=== PATIENT | male | born 1970 | race Caucasian/White ===

== ENCOUNTER 2017-04-14 13:56 | Emergency (ER) | payer SELFPAY ==
[~2017-04-14] VITALS: Ht 185.4 cm; Wt 87.0 kg
[~2017-04-14 13:56] MED LIST: IBUP600T26 PO
[2017-04-14 13:59] VITALS: BP 152/77; PULSE 93; RESP 14; TEMP 98.5; O2SAT 100
--- NOTE | 2017-04-14 14:05 | PD ---
Physical Exam Date Seen by Provider: April 14, 2017 Time Seen by Provider: 13:58 Narrative 47 YOWM C/O R HEEL AND ANKLE PAIN. STEPPED ON A FB 2 MONTHS AGO TX AT [facility]. STILL WITH PAIN. TWISTING ANKLE DUE TO UNSTEADY GAIT. VVS WAITING FOR BED PLACEMENT MDM Medical Record Reviewed: Yes Supervised Visit with CUBA: Miguelangel Hoffman April 14, 2017 14:04
[2017-04-14] MEDS ORDERED: IBUP-232 PO (14:25)
--- NOTE | 2017-04-14 14:29 | PD ---
HPI Chief Complaint: Injury Time Seen by Provider: 14:29 Travel History International Travel<30 days: No Contact w/Intl Traveler<30days: No Traveled to known affect area: No History of Present Illness HPI 47-year-old male came to the emergency room for left heel pain that has been going on for past 8 weeks. Patient says that 8 weeks ago he stepped on a nail and went to [facility] with a had done x-ray and eventually discharge him home on antibiotic which was Keflex for 7 days. Patient finished a seven-day course of Keflex but since then the pain has persisted and he cannot bear weight on that heel. Has been walking on his toes due to which she has twisted his ankle couple times. He came here to be checked out to see the reason he still in pain. Vital signs were within normal limit. 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 [facility] Past Medical History Narrative Medical List of his past medical, surgical, social and family history was reviewed from the nursing note. Medical History: Denies Significant Hx Bipolar Disorder: Yes Depression: Yes Diabetes: No Diminished Hearing: No Hepatitis: Yes (HEP C) Psychiatric: Yes (BIPOLAR) ?: Not Past Surgical History Surgical History: No Previous Surgery Social History Alcohol Use: No Tobacco Use: Yes (1 PPD) Substance Use: No Allergies-Medications (Allergen,Severity, Reaction): Coded Allergies: No Known Allergies (Verified , 04/14/17) Comments List of his allergies reviewed from the nursing note. Reported Meds & Prescriptions Reported Meds & Active Scripts Active Bactrim DS (Sulfamethoxazole-Trimethoprim) 800-160 Mg Tab 1 Tab PO BID Reported Ibuprofen 600 Mg Tab 600 Mg PO Q6H PRN Narrative Medication List of his home medications reviewed from the nursing note. Review of Systems Except as stated in HPI: all other systems reviewed are Neg Physical Exam Narrative GENERAL: Awake, alert, mild distress SKIN: Focused skin assessment warm/dry. HEAD: Atraumatic. Normocephalic. EYES: Pupils equal and round. No scleral icterus. No injection or drainage. ENT: No nasal bleeding or discharge. Mucous membranes pink and moist. NECK: Trachea midline. No JVD. CARDIOVASCULAR: Regular rate and rhythm. No murmur appreciated. RESPIRATORY: No accessory muscle use. Clear to auscultation. Breath sounds equal bilaterally. GASTROINTESTINAL: Abdomen soft, non-tender, nondistended. Hepatic and splenic margins not palpable. MUSCULOSKELETAL: No obvious deformities. No clubbing. No cyanosis. No edema. Right ankle is swollen but good range of motion. Right heel has some blanching area with a central healing punctum wound. Some point tenderness upon pressure on the medial aspect of the calcaneus NEUROLOGICAL: Awake and alert. No obvious cranial nerve deficits. Motor grossly within normal limits. Normal speech. PSYCHIATRIC: Appropriate mood and affect; insight and judgment normal. Data Data Last Documented VS Vital Signs Date Time Temp Pulse Resp B/P Pulse Ox O2 Delivery O2 Flow Rate FiO2 04/14/17 17:11 74 16 137/69 97 04/14/17 13:59 98.5 Orders Complete Blood Count With Diff (04/14/17 14:33) Basic Metabolic Panel (Bmp) (04/14/17 14:33) C-Reactive Protein (Crp) (04/14/17 14:33) Westergren Sedimentation Rate (04/14/17 14:33) Foot, Heel Only ([id number]) (04/14/17 ) Ankle, Complete ([id number]) (04/14/17 ) Sulfamet-Trimeth Ds 800-160 Mg (Bactrim (04/14/17 16:30) Labs Laboratory Tests Test 04/14/17 15:00 White Blood Count 8.8 TH/MM3 Red Blood Count 4.46 MIL/MM3 Hemoglobin 13.2 GM/DL Hematocrit 39.5 % Mean Corpuscular Volume 88.5 FL Mean Corpuscular Hemoglobin 29.7 PG Mean Corpuscular Hemoglobin 33.5 % Concent Red Cell Distribution Width 12.9 % Platelet Count 221 TH/MM3 Mean Platelet Volume 7.5 FL Neutrophils (%) (Auto) 67.0 % Lymphocytes (%) (Auto) 22.0 % Monocytes (%) (Auto) 7.1 % Eosinophils (%) (Auto) 2.7 % Basophils (%) (Auto) 1.2 % Neutrophils # (Auto) 5.9 TH/MM3 Lymphocytes # (Auto) 1.9 TH/MM3 Monocytes # (Auto) 0.6 TH/MM3 Eosinophils # (Auto) 0.2 TH/MM3 Basophils # (Auto) 0.1 TH/MM3 CBC Comment DIFF FINAL Differential Comment Erythrocyte Sedimentation Rate 17 mm/hr Sodium Level 138 MEQ/L Potassium Level 3.8 MEQ/L Chloride Level 107 MEQ/L Carbon Dioxide Level 24.6 MEQ/L Anion Gap 6 MEQ/L Blood Urea Nitrogen 24 MG/DL Creatinine 1.00 MG/DL Estimat Glomerular Filtration 80 ML/MIN Rate Random Glucose 89 MG/DL Calcium Level 8.9 MG/DL C-Reactive Protein 0.52 MG/DL MDM Medical Decision Making Medical Screen Exam Complete: Yes Emergency Medical Condition: Yes Medical Record Reviewed: Yes Differential Diagnosis Osteomyelitis, abscess, muscular skeletal pain Narrative Course 3:15 PM awaiting for the blood test results and x-ray. Patient was medicated with Toradol for pain. 4:31 PM blood test results of back and they are within acceptable limits. His sedimentation rate and CRP are mildly elevated. I'm giving him a dose of Bactrim and he'll be discharged home. X-rays were within normal limit as well. Procedures EKG Prior to Arrival: No Diagnosis Primary Impression: Cellulitis Qualified Code: L03.115 - Cellulitis of right lower extremity Referrals: Primary Care Physician 3 days Additional Instructions: Please take the antibiotic prescription as per the direction. Return to the ER if the condition worsens or any other new concerns. Follow-up with your primary care in couple days. Med/Other Pt SpecificInfo: Prescription(s) given Scripts Sulfamethoxazole-Trimethoprim (Bactrim DS)800-160 Mg Tab1 Tab PO BID #20 TAB Ref 0 Prov:Tiera Erazo MD 04/14/17 Disposition: 01 DISCHARGE HOME Condition: Stable Tiera Erazo MD April 14, 2017 14:29
--- NOTE | 2017-04-14 15:25 | RADRPT ---
EXAM DATE/TIME: 04/14/2017 14:56 [facility] COMPARISON: ANKLE RIGHT COMPLETE ([id number]), December 30, 2015, 17:59. INDICATIONS : Patient stepped on something at his job site eight weeks ago. MEDICAL HISTORY : None. SURGICAL HISTORY : None. ENCOUNTER: Initial ACUITY: 2 months PAIN SCORE: 5/10 LOCATION: Right Center of heel. FINDINGS: There is no evidence of acute fracture. Bony mineralization is normal. An inferior calcaneal spur is present. No foreign body is identified. CONCLUSION: 1. No foreign body is identified. Gentry Whitten MD on April 14, 2017 at 15:10 Board Certified Radiologist. This report was verified electronically.
[2017-04-14 15:38] LABS: AUTOMATED NEUTROPHIL # 5.9 TH/MM3 (1.8-7.7); BASOPHIL # 0.1 TH/MM3 (0-0.2); BASOPHIL % 1.2 % (0.0-2.0); EOSINOPHIL # 0.2 TH/MM3 (0-0.4); EOSINOPHIL % 2.7 % (0.0-4.0); HEMATOCRIT 39.5 % (39.0-51.0); HEMO FLAGS DIFF FINAL; LYMPHOCYTE # 1.9 TH/MM3 (1.0-4.8); MEAN CELL VOLUME 88.5 FL (80.0-100.0); MEAN CORPUSCULAR HEMOGLOBIN 29.7 PG (27.0-34.0); MEAN CORPUSCULAR HGB CONC 33.5 % (32.0-36.0); MONO % 7.1 % (0.0-8.0); PLATELET COUNT 221 TH/MM3 (150-450); RED BLOOD COUNT 4.46 MIL/MM3 (4.50-5.90); RED CELL DISTRIBUTION WIDTH 12.9 % (11.6-17.2); WHITE BLOOD COUNT 8.8 TH/MM3 (4.0-11.0)
--- NOTE | 2017-04-14 15:43 | RADRPT ---
EXAM DATE/TIME: 04/14/2017 14:56 [facility] COMPARISON: No previous studies available for comparison. INDICATIONS : Patient stepped on something at his job site eight weeks ago. MEDICAL HISTORY : None. SURGICAL HISTORY : None. ENCOUNTER: Initial ACUITY: 2 months PAIN SCORE: 5/10 LOCATION: Right Center of heel. FINDINGS: Two view examination of the right heel demonstrates the trabecula to be intact with no evidence of fr acture. There is a normal calcaneal angle. The soft tissues are of normal thickness. CONCLUSION: Negative for radiopaque foreign body Mark Riggins MD FACR on April 14, 2017 at 15:41 Board Certified Radiologist. This report was verified electronically.
[2017-04-14 15:59] LABS: BICARBONATE 24.6 MEQ/L (21.0-32.0); POTASSIUM 3.8 MEQ/L (3.5-5.1)
[2017-04-14] MEDS ORDERED: SULFAMETHOXAZOLE-TRIMETHOPRIM DS 800-160 MG TAB PO ONE (16:30)
[2017-04-14] MEDS ORDERED: BACT800T5 PO (16:33)
[2017-04-14 17:11] VITALS: BP 137/69
== END 2017-04-14 17:23 | disposition home or self-care (01) ==
LOC: NEPD 13:56
DX: L03.115 Cellulitis of right lower limb (principal); S90.851D Superficial foreign body, right foot, subsequent encounter; B19.20 Unspecified viral hepatitis C without hepatic coma; F17.210 Nicotine dependence, cigarettes, uncomplicated; W45.0XXD Nail entering through skin, subsequent encounter
CPT/HCPCS: 73610; 73650; 80048; 85025; 85652; 86140; 99283

== ENCOUNTER 2017-09-01 18:33 | Emergency (ER) | payer SELFPAY ==
[~2017-09-01] VITALS: Ht 188 cm; Wt 82.0 kg
[~2017-09-01 18:33] MED LIST changes: +BACT800T5 PO; +IBUP-232 PO; -IBUP600T26 PO
[2017-09-01 18:35] VITALS: BP 129/75; PULSE 63; RESP 16; TEMP 98.9; O2SAT 99
--- NOTE | 2017-09-01 20:24 | PD ---
HPI Chief Complaint: Lump, Cyst, Hernia Time Seen by Provider: 20:23 Travel History International Travel<30 days: No Contact w/Intl Traveler<30days: No Traveled to known affect area: No History of Present Illness HPI 47 YO LEFT-HAND DOMINANT M with PMH of MRSA, IVDA presents to the ED for evaluation of 3 day history of left antecubital pain, redness, swelling. The patient states that he was injecting there and "missed." He endorses accompanying paraesthesias of the hand. He denies fever, chills, nausea, vomiting, palpitations, chest pain, weakness or limitations to range of motion of the affected extremity. No treatment attempt at home. PFSH Past Medical History Bipolar Disorder: Yes Depression: Yes Diabetes: No Diminished Hearing: No Hepatitis: Yes (HEP C) Psychiatric: Yes (BIPOLAR) Social History Alcohol Use: No Tobacco Use: Yes (1 PPD) Substance Use: No Allergies-Medications (Allergen,Severity, Reaction): Coded Allergies: No Known Allergies (Verified , 04/14/17) Reported Meds & Prescriptions Reported Meds & Active Scripts Active Ibuprofen 600 Mg Tab 600 Mg PO Q8HR PRN Bactrim DS (Sulfamethoxazole-Trimethoprim) 800-160 Mg Tab 1 Tab PO BID Bactrim DS (Sulfamethoxazole-Trimethoprim) 800-160 Mg Tab 1 Tab PO BID Reported Ibuprofen 600 Mg Tab 600 Mg PO Q6H PRN Review of Systems Except as stated in HPI: all other systems reviewed are Neg Physical Exam Narrative GENERAL: Well-nourished, well-developed male in no acute distress. SKIN: Focused skin assessment warm/dry. SKIN: There is an indurated area in the left antecubital space which measures about 3 cm in diameter. It is fluctuant but there is no pointing or drainage. There is a zone of inflammation around it but no lymphangitis. HEAD: Normocephalic. EYES: No scleral icterus. No injection or drainage. NECK: Supple, trachea midline. No JVD or lymphadenopathy. CARDIOVASCULAR: Regular rate and rhythm without murmurs, gallops, or rubs. RESPIRATORY: Breath sounds equal bilaterally. No accessory muscle use. GASTROINTESTINAL: Abdomen soft, non-tender, nondistended. MUSCULOSKELETAL: No cyanosis, or edema. Focused left upper extremity exam: 2+ radial pulse. Patient retains full, active, painless ROM of the left wrist and fingers. Neurovascularly intact distally on each finger. BACK: Nontender without obvious deformity. No CVA tenderness. Data Data Last Documented VS Vital Signs Date Time Temp Pulse Resp B/P (MAP) Pulse Ox O2 Delivery O2 Flow Rate FiO2 09/01/17 18:35 98.9 63 16 129/75 (93) 99 Orders Orders Ed Poc Ultrasound (09/01/17 ) Wound Culture And Gram Stain (09/01/17 20:32) Lidocaine 1% Inj (50 Ml) (Xylocaine 1% I (09/01/17 20:45) Sulfamet-Trimeth Ds 800-160 Mg (Bactrim (09/01/17 20:45) MDM Medical Decision Making Medical Screen Exam Complete: Yes Emergency Medical Condition: Yes Differential Diagnosis abscess versus thrombophlebitis versus Narrative Course 47-year-old left-hand dominant male with PMH of IVDA, MRSA presents to ED for evaluation of 3 day history of abscess in the left antecubital space. Patient states that he was injecting methamphetamine a few days ago and "missed." No fever, chills, nausea, vomiting. Vitals reviewed, within normal limits. Patient has a 3 cm indurated area in the left antecubital space, retains full, active, painless ROM of the left upper extremity. Neurovascularly intact. [id number] ultrasound was performed which revealed large abscess in the antecubital space. Abscess I&D was performed. Please my procedure note for details. Patient is prescribed Bactrim DS twice a day 7 days and 600 mg ibuprofen 3 times a day when necessary pain and inflammation. First dose Bactrim administered in the ED. He is instructed to return to the ED in 2 days for packing removal and wound recheck, sooner if signs of infection should worsen. He indicated understanding of instructions and is agreeable to the care plan. He is stable and discharged home. Diagnosis Primary Impression: Abscess of left upper extremity Referrals: Primary Care Physician Patient Instructions: Abscess (ED), General Instructions Additional Instructions: Rest, hydrate. Do not change the dressing for 24 hours. You may bathe normally. Do not submerge the wound. After bathing pat of wound dry. Allow the wound to air dry for 10-15 minutes. Apply a thin layer of antibiotic ointment and a clean, dry dressing. Take the antibiotics as they are prescribed, even if your symptoms resolve. Utilize Ibuprofen as described on the label, as needed. Return to the ED in 2 days for packing removal and wound recheck. Monitor for signs of infection as discussed, return earlier if needed. Return to the ED for any urgent or emergent medical condition. Med/Other Pt SpecificInfo: Prescription(s) given Scripts Ibuprofen (Ibuprofen) 600 Mg Tab 600 MG PO Q8HR Y for PAIN, #15 TAB 0 Refills Prov: Lauri Doan MD 09/01/17 Sulfamethoxazole-Trimethoprim (Bactrim DS) 800-160 Mg Tab 1 TAB PO BID for Infection, #14 TAB 0 Refills Prov: Lauri Doan MD 09/01/17 Disposition: 01 DISCHARGE HOME Condition: Stable Kaylen Vasquez Sep 01, 2017 20:24
[2017-09-01] MEDS ORDERED: IBUP-232 PO (20:36)
[2017-09-01] MEDS ORDERED: BACT800T5 PO (20:36)
[2017-09-01] MEDS ORDERED: LIDOCAINE HCL 1% 50 ML VIAL INFIL ONE (20:45)
[2017-09-01] MEDS ORDERED: SULFAMETHOXAZOLE-TRIMETHOPRIM DS 800-160 MG TAB PO ONE (20:45)
== END 2017-09-01 21:52 | disposition home or self-care (01) ==
LOC: NEPD 18:33
DX: L02.414 Cutaneous abscess of left upper limb (principal); R20.2 Paresthesia of skin; B95.61 Methicillin susceptible Staphylococcus aureus infection as the cause of diseases classified elsewhere; F17.200 Nicotine dependence, unspecified, uncomplicated; Z86.59 Personal history of other mental and behavioral disorders; Z86.19 Personal history of other infectious and parasitic diseases
CPT/HCPCS: 10061; 86403; 87070; 87077; 87186; 87205

== ENCOUNTER 2018-03-28 06:16 | Emergency (ER) | payer SELFPAY ==
[~2018-03-28] VITALS: Ht 182.9 cm; Wt 88.0 kg
[2018-03-28 06:23] VITALS: BP 150/77; PULSE 89; RESP 18; TEMP 97.8; O2SAT 98
--- NOTE | 2018-03-28 07:06 | PD ---
HPI Chief Complaint: Respiratory Symptoms Time Seen by Provider: 06:44 Travel History International Travel<30 days: No Contact w/Intl Traveler<30days: No Traveled to known affect area: No History of Present Illness HPI The patient is a 48 year old male who presents to the [facility] emergency department with a history of cough, congestion, laryngitis, nausea/ vomiting, and diarrhea that have intermittently been present for the last week. The patient reports that he had been clean and sober for 90 days and then relapsed when his girlfriend relapsed. He reports that he has been binging on IV heroin , methamphetamine, cocaine over this past week. He reports that prior to that he was at a sober longterm house. The patient reports that his girlfriend was recently treated for endocarditis and he became concerned that he may be experiencing similar symptoms. He reports that he has chest pain with coughing. He reports that he initially had a productive cough, however now he has a dry cough. He reports that he is shortness of breath with exertion. He reports that he last had nausea and vomiting on Monday throughout the day. He reports that over the last 2 days he has had diarrhea every time he eats and once in the morning. He denies having any blood in the stool or black or tarry stools. He denies having any mucus in his stool. The final complaint that the patient reports today is left lower extremity swelling. The patient reports having calf pain associated with this. On review of systems otherwise, the patient reports having a subjective fever. He denies having any neck or back pain. He denies having any abdominal pain, urinary symptoms, or neurologic symptoms. [facility] Past Medical History Narrative Medical The patient's past medical history is significant for polysubstance abuse including IV drug use, hepatitis C, bipolar disorder. Bipolar Disorder: Yes Depression: Yes Diabetes: No Diminished Hearing: No Hepatitis: Yes (HEP C) Psychiatric: Yes (BIPOLAR) Tetanus Vaccination: Unknown Influenza Vaccination: No Past Surgical History Narrative Surgical The patient's past surgical history is significant for right middle finger surgery Social History Alcohol Use: No Tobacco Use: Yes (1 PPD) Substance Use: Yes (IV herion, cocaine, methamphetamine) Allergies-Medications (Allergen,Severity, Reaction): Coded Allergies: No Known Allergies (Verified Adverse Reaction, Unknown, 03/28/18) Reported Meds & Prescriptions Reported Meds & Active Scripts Active No Active Prescriptions or Reported Medications Review of Systems Except as stated in HPI: all other systems reviewed are Neg General / Constitutional: Positive: Fever Eyes: No: Visual changes HENT: No: Headaches Cardiovascular: Positive: Chest Pain or Discomfort (With coughing), Dyspnea on exertion Respiratory: Positive: Cough, Shortness of Breath Gastrointestinal: Positive: Nausea, Vomiting, Diarrhea, Changes in Bowel Habits , No: Abdominal Pain Genitourinary: No: Dysuria Musculoskeletal: Positive: Myalgias, Edema, Pain Skin: No Rash Neurologic: Positive: Weakness (Generalized weakness), No: Focal Abnormalities , Change in Mentation, Slurred Speech, Sensory Disturbance Psychiatric: No: Depression Endocrine: No: Polydipsia Hematologic/Lymphatic: No: Easy Bruising Physical Exam Narrative General: The patient is a well-developed well-nourished male in no acute distress. Head and Neck exam: Head is normocephalic atraumatic. Eyes: EOMI, pupils are equal round and reactive to light. Nose: Midline septum with pink mucous membranes Mouth: Dentition unremarkable. Moist mucus membranes. Posterior oropharynx is not erythematous. No tonsillar hypertrophy. Uvula midline. Airway patent. Neck: No palpable lymphadenopathy. No nuchal rigidity. No thyromegaly. Cardiovascular: Regular rate and rhythm without murmurs, gallops, or rubs. No pulse deficit to the extremities on simultaneous auscultation and palpation of his radial artery. Lungs: Clear to auscultation bilaterally. No wheezes, rhonchi, or rales. Abdomen: Soft, without tenderness to palpation in all 4 quadrants of the abdomen. No guarding, rebound, or rigidity. Normal bowel sounds are audible. No tenderness on palpation of McBurney's point Extremities: No clubbing or cyanosis. The patient has trace pedal edema of the right ankle, slightly more edema of the left lower extremity with calf tenderness reported on palpation. 2+ pulses in all 4 extremities. Back: No spinous process tenderness to palpation. No costovertebral angle tenderness to palpation. Neurologic Exam: Grossly nonfocal. Skin Exam: The patient has multiple areas of scabbing, skin excoriation noted. He reports that this is work-related as he does work outdoors. No abscesses are noted. Intact skin that is warm and dry. Data Data Last Documented VS Vital Signs Date Time Temp Pulse Resp B/P (MAP) Pulse Ox O2 Delivery O2 Flow Rate FiO2 03/28/18 06:23 97.8 89 18 150/77 (101) 98 Orders Orders Electrocardiogram (03/28/18 06:58) Complete Blood Count With Diff (03/28/18 06:58) Comprehensive Metabolic Panel (03/28/18 06:58) Creatine Kinase (Cpk) (03/28/18 06:58) Ckmb (Isoenzyme) Profile (03/28/18 06:58) Troponin I (03/28/18 06:58) Prothrombin Time / Inr (Pt) (03/28/18 06:58) Act Partial Throm Time (Ptt) (03/28/18 06:58) C-Reactive Protein (Crp) (03/28/18 06:58) Lipase (03/28/18 06:58) Urinalysis - C+S If Indicated (03/28/18 06:58) Westergren Sedimentation Rate (03/28/18 06:58) Magnesium (Mg) (03/28/18 06:58) Thyroid Stimulating Hormone (03/28/18 06:58) Chest, Single Ap (03/28/18 06:58) Iv Access Insert/Monitor (03/28/18 06:58) Ecg Monitoring (03/28/18 06:58) Oximetry (03/28/18 06:58) MDM Medical Decision Making Medical Screen Exam Complete: Yes Emergency Medical Condition: Yes Medical Record Reviewed: Yes Differential Diagnosis Pneumonia, versus septic emboli, versus endocarditis, versus bronchitis, versus DVT Narrative Course During the course of the patient's emergency department visit, the patient's history, examination, and differential diagnosis were reviewed with the patient. The patient was placed on a flake or shred roll operator with oximetry and frequent blood pressure monitoring. The patient had IV access obtained and blood work sent for analysis. A chest x-ray was ordered, left lower extremity ultrasound was ordered to evaluate for possible underlying DVT. The patient's case was checked out to the oncoming emergency physician to disposition the patient based on the conclusion of his workup. Diagnosis Primary Impression: Shortness of breath Additional Impression: Cough Scripts No Active Prescriptions or Reported Meds Angie Abdullahi MD March 28, 2018 07:06
--- NOTE | 2018-03-28 07:20 | RADRPT ---
EXAM DATE/TIME: 03/28/2018 07:06 [facility] COMPARISON: No previous studies available for comparison. INDICATIONS : Congestion, short of breath, exhaustion MEDICAL HISTORY : None. SURGICAL HISTORY : None. ENCOUNTER: Initial ACUITY: 3 days PAIN SCORE: 0/10 LOCATION: Bilateral chest FINDINGS: A single view of the chest demonstrates the lungs to be symmetrically aerated without evidence of mas s, infiltrate or effusion. The cardiomediastinal contours are unremarkable. Osseous structures are intact. There is a small focus of increased density seen at the lateral lower left chest with either dense calcification or metallic density. CONCLUSION: No acute disease. Geoff Vargas MD on March 28, 2018 at 7:17 Board Certified Radiologist. This report was verified electronically.
[2018-03-28 07:27] LABS: AUTOMATED NEUTROPHIL # 10.4 TH/MM3 (1.8-7.7); BASOPHIL # 0.1 TH/MM3 (0-0.2); BASOPHIL % 0.4 % (0.0-2.0); EOSINOPHIL # 0.2 TH/MM3 (0-0.4); EOSINOPHIL % 1.8 % (0.0-4.0); HEMATOCRIT 37.1 % (39.0-51.0); HEMOGLOBIN 12.7 GM/DL (13.0-17.0); LYMPH % 12.3 % (9.0-44.0); LYMPHOCYTE # 1.6 TH/MM3 (1.0-4.8); MEAN CELL VOLUME 88.6 FL (80.0-100.0); MEAN CORPUSCULAR HEMOGLOBIN 30.3 PG (27.0-34.0); MEAN CORPUSCULAR HGB CONC 34.2 % (32.0-36.0); MONO % 6.5 % (0.0-8.0); MONOCYTE # 0.9 TH/MM3 (0-0.9); PLATELET COUNT 297 TH/MM3 (150-450); RED BLOOD COUNT 4.18 MIL/MM3 (4.50-5.90); RED CELL DISTRIBUTION WIDTH 13.1 % (11.6-17.2); WHITE BLOOD COUNT 13.2 TH/MM3 (4.0-11.0)
[2018-03-28 07:35] LABS: INTERNATIONAL NORMALIZED RATIO 1.1 RATIO; PROTHROMBIN TIME - PATIENT 11.1 SEC (9.8-11.6)
[2018-03-28 07:45] LABS: ALBUMIN 3.5 GM/DL (3.4-5.0); AST (GOT) 56 U/L (15-37); BICARBONATE 26.5 MEQ/L (21.0-32.0); BLOOD UREA NITROGEN 18 MG/DL (7-18); CALCIUM 8.5 MG/DL (8.5-10.1); CHLORIDE 106 MEQ/L (98-107); GLOMERULAR FILTRATION RATE 90 ML/MIN (>89); GLUCOSE,RANDOM 102 MG/DL (74-106); MAGNESIUM 2.2 MG/DL (1.5-2.5); SODIUM (NA) 140 MEQ/L (136-145)
[2018-03-28 07:54] LABS: BILIRUBIN, URINE NEG (NEG); BLOOD, URINE TRACE (NEG); CALCIUM OXALATE CRYSTALS,URINE OCC /hpf; GLUCOSE,URINE NEG (NEG); KETONE, URINE NEG (NEG); MUCUS URINE FEW /lpf (OCC); NITRITE,URINE NEG (NEG); URINE COLOR YELLOW (YELLW/STRAW); URINE LEUKOCYTE ESTERASE NEG (NEG)
[2018-03-28 07:54] LABS: ALKALINE PHOSPHATASE 89 U/L (45-117); ALT (GPT) 75 U/L (12-78); TOTAL BILIRUBIN ADULT 0.4 MG/DL (0.2-1.0); TOTAL PROTEIN 7.6 GM/DL (6.4-8.2); TROPONIN I LESS THAN 0.02 NG/ML (0.02-0.05)
--- NOTE | 2018-03-28 08:04 | RADRPT ---
EXAM DATE/TIME: 03/28/2018 07:42 [facility] COMPARISON: No previous studies available for comparison. INDICATIONS : Left leg pain. MEDICAL HISTORY : Hepatitis C. Bipolar disorder. Substance abuse. SURGICAL HISTORY : Orthopedic surgery on right finger. ENCOUNTER: Initial ACUITY: 1 day PAIN SCORE: 0/10 LOCATION: Left leg. TECHNIQUE: Venous ultrasound of the leg was performed from the inguinal ligament to the proximal calf. Real-emy e, color Doppler and spectral tracing, compression and augmentation techniques were used. FINDINGS: There is normal compressibility of the deep venous system from the inguinal region to the proximal ca lf. No echogenic clot is seen in the lumen of the common femoral, femoral, popliteal, and posterior tibial veins. There is a normal response of the venous system to proximal and distal augmentation an d respiration. CONCLUSION: No DVT is identified within the left lower extremity. Geoff Willis MD on March 28, 2018 at 8:02 Board Certified Radiologist. This report was verified electronically.
--- NOTE | 2018-03-28 08:13 | PD ---
Physical Exam Date Seen by Provider: March 28, 2018 Narrative Care was assumed at [address] Abdullahi pending evaluation for basically feeling poorly for the last week. He reports both upper respiratory symptoms and GI symptoms. He reports IV drug abuse. Data Data Last Documented VS Vital Signs Date Time Temp Pulse Resp B/P (MAP) Pulse Ox O2 Delivery O2 Flow Rate FiO2 03/28/18 06:23 97.8 89 18 150/77 (101) 98 Orders Orders Electrocardiogram (03/28/18 06:58) Complete Blood Count With Diff (03/28/18 06:58) Comprehensive Metabolic Panel (03/28/18 06:58) Creatine Kinase (Cpk) (03/28/18 06:58) Ckmb (Isoenzyme) Profile (03/28/18 06:58) Troponin I (03/28/18 06:58) Prothrombin Time / Inr (Pt) (03/28/18 06:58) Act Partial Throm Time (Ptt) (03/28/18 06:58) C-Reactive Protein (Crp) (03/28/18 06:58) Lipase (03/28/18 06:58) Urinalysis - C+S If Indicated (03/28/18 06:58) Westergren Sedimentation Rate (03/28/18 06:58) Magnesium (Mg) (03/28/18 06:58) Thyroid Stimulating Hormone (03/28/18 06:58) Chest, Single Ap (03/28/18 06:58) Iv Access Insert/Monitor (03/28/18 06:58) Ecg Monitoring (03/28/18 06:58) Oximetry (03/28/18 06:58) Us Leg Venous Doppler (03/28/18 07:04) CKMB (03/28/18 07:10) CKMB% (03/28/18 07:10) Labs Laboratory Tests Test 03/28/18 07:10 03/28/18 07:13 White Blood Count 13.2 TH/MM3 Red Blood Count 4.18 MIL/MM3 Hemoglobin 12.7 GM/DL Hematocrit 37.1 % Mean Corpuscular Volume 88.6 FL Mean Corpuscular Hemoglobin 30.3 PG Mean Corpuscular Hemoglobin Concent 34.2 % Red Cell Distribution Width 13.1 % Platelet Count 297 TH/MM3 Mean Platelet Volume 7.0 FL Neutrophils (%) (Auto) 79.0 % Lymphocytes (%) (Auto) 12.3 % Monocytes (%) (Auto) 6.5 % Eosinophils (%) (Auto) 1.8 % Basophils (%) (Auto) 0.4 % Neutrophils # (Auto) 10.4 TH/MM3 Lymphocytes # (Auto) 1.6 TH/MM3 Monocytes # (Auto) 0.9 TH/MM3 Eosinophils # (Auto) 0.2 TH/MM3 Basophils # (Auto) 0.1 TH/MM3 CBC Comment DIFF FINAL Differential Comment Erythrocyte Sedimentation Rate 15 mm/hr Prothrombin Time 11.1 SEC Prothromb Time International Ratio 1.1 RATIO Activated Partial Thromboplast Time 28.5 SEC Blood Urea Nitrogen 18 MG/DL Creatinine 0.90 MG/DL Random Glucose 102 MG/DL Total Protein 7.6 GM/DL Albumin 3.5 GM/DL Calcium Level 8.5 MG/DL Magnesium Level 2.2 MG/DL Alkaline Phosphatase 89 U/L Aspartate Amino Transf (AST/SGOT) 56 U/L Alanine Aminotransferase (ALT/SGPT) 75 U/L Total Bilirubin 0.4 MG/DL Sodium Level 140 MEQ/L Potassium Level 4.0 MEQ/L Chloride Level 106 MEQ/L Carbon Dioxide Level 26.5 MEQ/L Anion Gap 8 MEQ/L Estimat Glomerular Filtration Rate 90 ML/MIN Total Creatine Kinase 412 U/L Creatine Kinase MB 10.5 NG/ML Creatine Kinase MB % 2.5 % Troponin I LESS THAN 0.02 NG/ML C-Reactive Protein 2.30 MG/DL Lipase 46 U/L Thyroid Stimulating Hormone 3rd Gen 2.260 uIU/ML Urine Color YELLOW Urine Turbidity CLEAR Urine pH 6.0 Urine Specific [place] 1.030 Urine Protein TRACE mg/dL Urine Glucose (UA) NEG mg/dL Urine Ketones NEG mg/dL Urine Occult Blood TRACE Urine Nitrite NEG Urine Bilirubin NEG Urine Urobilinogen 4.0 MG/DL Urine Leukocyte Esterase NEG Urine RBC 16 /hpf Urine WBC 1 /hpf Urine Calcium Oxalate Crystals OCC /hpf Urine Mucus FEW /lpf Microscopic Urinalysis Comment CULT NOT INDICATED MDM Supervised Visit with CUBA: No Narrative Course Vital Signs Date Time Temp Pulse Resp B/P (MAP) Pulse Ox O2 Delivery O2 Flow Rate FiO2 03/28/18 06:23 97.8 89 18 150/77 (101) 98 CBC & BMP Diagram 03/28/18 07:10 Total Protein 7.6, Albumin 3.5, Calcium Level 8.5, Magnesium Level 2.2, Alkaline Phosphatase 89, Aspartate Amino Transf (AST/SGOT) 56 H, Alanine Aminotransferase (ALT/SGPT) 75, Total Bilirubin 0.4 UA is negative for infection Last Impressions Chest X-Ray 03/28/18 0658 Signed Impressions: Service Date/Time: Wednesday, March 28, 2018 07:06 - CONCLUSION: No acute disease. Geoff Vargas MD US>>no DVT This patient is stable to pursue outpatient treatment for his drug abuse Diagnosis Primary Impression: Shortness of breath Additional Impression: Cough Scripts No Active Prescriptions or Reported Meds Disposition: DISCHARGE HOME Condition: Stable Sofie Bose MD March 28, 2018 08:13
[2018-03-28 08:32] VITALS: BP 121/72; TEMP 98.3
--- NOTE | 2018-03-29 14:16 | EKG ---
Date Performed: 03/28/2018 Time Performed: 08:09:15 PTAGE: 48 years EKG: Sinus rhythm NORMAL ECG Since the PREVIOUS TRACING , no significant change noted PREVIOUS TRACIN08/03/2014 16.11 DOCTOR: Hortencia Galeano Interpretating Date/Time 03/29/2018 14:14:05
[2018-04-01] MEDS ORDERED: CEPH-460 PO (14:36)
[2018-04-01] MEDS ORDERED: BACT800T5 PO (15:14)
== END 2018-03-28 08:38 | disposition home or self-care (01) ==
LOC: NEPE 06:16
DX: R06.02 Shortness of breath (principal); R11.2 Nausea with vomiting, unspecified; R19.7 Diarrhea, unspecified; R07.9 Chest pain, unspecified; F17.200 Nicotine dependence, unspecified, uncomplicated; F19.10 Other psychoactive substance abuse, uncomplicated; B19.20 Unspecified viral hepatitis C without hepatic coma
CPT/HCPCS: 71045; 80053; 81001; 82550; 82552; 83690; 83735; 84443; 84484; 85025; 85610; 85652; 85730; 86140; 93005; 93971

== ENCOUNTER 2018-04-01 14:23 | Emergency (ER) | payer SELFPAY ==
[2018-04-01] MEDS: SULFAMETHOXAZOLE-TRIMETHOPRIM DS 800-160 MG TAB PO (16:48)
== END 2018-04-01 16:48 | disposition home or self-care (01) ==
LOC: NEPD 14:23
DX: L02.414 Cutaneous abscess of left upper limb (principal); F19.10 Other psychoactive substance abuse, uncomplicated; F17.200 Nicotine dependence, unspecified, uncomplicated
CPT/HCPCS: 10060; 86403; 87070; 87186; 87205; 99283-25